=== PATIENT | male | born 1995 | race Hispanic/Latino ===

== ENCOUNTER 2018-05-05 20:09 | Emergency (ER) | payer SELFPAY ==
[~2018-05-05] VITALS: Ht 177.8 cm; Wt 95.4 kg
[2018-05-05 23:02] VITALS: BP 133/57
== END 2018-05-05 23:05 | disposition home or self-care (01) ==
LOC: EME → EDBD 20:09 → EME 23:05
DX: F19.10 Other psychoactive substance abuse, uncomplicated (principal); R09.02 Hypoxemia; R00.0 Tachycardia, unspecified; F17.200 Nicotine dependence, unspecified, uncomplicated
CPT/HCPCS: 93005; 99281; 99284

== ENCOUNTER 2018-05-07 21:07 | Emergency (ER) | payer SELFPAY ==
[~2018-05-07] VITALS: Ht 172.7 cm; Wt 99.0 kg
[2018-05-07 21:55] LABS: HEMATOCRIT 40.7 % (38.0-50.0); HEMOGLOBIN 13.6 G/DL (12.5-16.6); MCH 29.6 PG (29.0-34.0); MCHC 33.4 G/DL (30.0-36.0); MCV 88.5 FL (86-99); PLATELET COUNT 200 K/uL (156-360); RBC DIS.WIDTH-CV 12.5 % (11.8-14.6); RBC DIS.WIDTH-SD 40.7 % (39-53); WHITE BLOOD COUNT 12.2 K/uL (4.1-10.2)
[2018-05-07 22:04] LABS: ALBUMIN 3.8 g/dL (3.2-4.8); CHLORIDE 104 mEq/L (99-109); POTASSIUM 4.4 mEq/L (3.7-5.4); SODIUM 140 mEq/L (136-147)
[2018-05-07 22:06] LABS: GLUCOSE 111 mg/dL (70-99); TOTAL PROTEIN 6.5 g/dL (6.4-8.3)
[2018-05-07 22:08] LABS: TOTAL BILIRUBIN 0.5 mg/dL (0.0-1.0)
[2018-05-07 22:09] LABS: SERUM ETHYL ALCOHOL < 10 mg/dL
[2018-05-07 22:10] LABS: CREATININE 1.2 mg/dL (0.6-1.3); GFR ESTIMATE (CALCULATED) > 59 mL/min/ (58.99-99999)
[2018-05-07 22:11] LABS: ALKALINE PHOSPHATASE 110 IU/L (3-129); AST (GOT) 21 IU/L (2-34)
[2018-05-07 22:12] LABS: UREA NITROGEN (BUN) 17 mg/dL (9-23)
[2018-05-07 22:13] LABS: SALICYLATE < 5.0 MG/DL (15-30)
[2018-05-07 22:14] LABS: ACETAMINOPHEN (TYLENOL) < 10 mcg/mL (10-30); ALT (GPT) 20 IU/L (3-49); CREATINE KINASE 330 IU/L (1-294)
[2018-05-07 22:20] LABS: TROP-I INTERPRETATION NEGATIVE; TROPONIN-I 0.03 ng/mL (0.0-0.30)
[2018-05-07 22:40] LABS: AMPHETAMINE NEGATIVE (500 ng/mL); BARBITURATES NEGATIVE (200 ng/mL); BENZODIAZEPINES NEGATIVE (150 ng/mL); BUPRENORPHINE NEGATIVE (10 ng/mL); COCAINE NEGATIVE (150 ng/mL); METHADONE NEGATIVE (200 ng/mL); METHAMPHETAMINE NEGATIVE (500 ng/mL); OPIATES (MORPHINE) PRESUMPTIVE POSITIVE (100 ng/mL); OXYCODONE NEGATIVE (100 ng/mL); PHENCYCLIDINE NEGATIVE (25 ng/mL); PROPOXYPHENE NEGATIVE (300 ng/mL); THC CANNABINOIDS PRESUMPTIVE POSITIVE (50 ng/mL); TRICYCLIC ANTIDEPRESSANTS NEGATIVE (300 ng/mL)
[2018-05-08 01:20] VITALS: BP 121/45
== END 2018-05-08 01:24 | disposition home or self-care (01) ==
LOC: EME 21:07
PROVIDERS: Emergency Medicine
DX: T40.2X1A Poisoning by other opioids, accidental (unintentional), initial encounter (principal); T40.7X1A Poisoning by cannabis (derivatives), accidental (unintentional), initial encounter; F17.200 Nicotine dependence, unspecified, uncomplicated
CPT/HCPCS: 71045; 80053; 82550; 84484; 84999; 85027; 93005; 99281; 99285; G0480

== ENCOUNTER 2018-06-17 23:20 | Emergency (ER) | payer SELFPAY ==
[~2018-06-17] VITALS: Ht 172.7 cm; Wt 90.1 kg
[2018-06-18 06:59] VITALS: BP 120/63
== END 2018-06-18 07:11 | disposition home or self-care (01) ==
LOC: EME → EDBD 23:38 → EME 23:38
DX: F19.10 Other psychoactive substance abuse, uncomplicated (principal); F17.200 Nicotine dependence, unspecified, uncomplicated
CPT/HCPCS: 99281; 99285; J1630; J2060